=== PATIENT | male | born 1925 | race Caucasian/White ===

== ENCOUNTER 2016-10-08 19:43 | Inpatient (IN) | payer MEDICARE, OTHER ==
[~2016-10-08] VITALS: Ht 177.8 cm; Wt 98.5 kg
[2016-10-08] MEDS ORDERED: ALTEPLASE 1 MG/ML ONE (19:55)
[2016-10-08 19:56] LABS: HEMOGLOBIN 13.4 g/dL (13.7-18.0)
[2016-10-08] MEDS ORDERED: ALTEPLASE 9 MG in SYRINGE 1 EA IV ONE (20:30)
[2016-10-08] MEDS ORDERED: ALTEPLASE 81 MG in BAG 1 EACH IV ONE (20:30)
[2016-10-08] MEDS ORDERED: SODIUM CHLORIDE FLUSH 10ML SYR IVF PRN (21:00)
[2016-10-08] MEDS ORDERED: POLYETHYLENE GLYCOL 17 GM PACKET PO PRN (21:30)
[2016-10-08] MEDS ORDERED: BISACODYL 10 MG SUPP PR PRN (21:30)
[2016-10-08] MEDS: ATORVASTATIN 80 MG TABLET PO SCH (21:30)
[2016-10-08] MEDS ORDERED: LABETALOL 5MG/ML, 20ML IV PRN ×2 (21:30)
[2016-10-08] MEDS ORDERED: DOCUSATE 100 MG CAPSULE PO PRN (21:30)
[2016-10-08] MEDS ORDERED: ACETAMINOPHEN 325 MG TABLET PO PRN (21:30)
[2016-10-08] MEDS ORDERED: ONDANSETRON 2MG/ML, 2ML IVP PRN (21:30)
[2016-10-08] MEDS ORDERED: TRAZODONE 50MG TABLET PO PRN (21:30)
[2016-10-08 22:20] VITALS: BP 123/106
[2016-10-08 23:08] VITALS: BP 132/58
[2016-10-08] MEDS ORDERED: GADOBUTROL 10 MMOL/10 ML PFS ONE (23:23)
[2016-10-08 23:38] VITALS: BP 141/60
[2016-10-09] VITALS (26 sets, daily range): BP systolic 97–164; BP diastolic 36–117
[2016-10-09] MEDS: MORPHINE SULFATE 4 MG/ML, 1ML IVPush PRN ×2 (03:44→22:03)
[2016-10-09 04:39] LABS: HEMOGLOBIN 12.9 g/dL (13.7-18.0)
[2016-10-09 04:44] LABS: BLOOD UREA NITROGEN 15 mg/dL (7-18)
[2016-10-09 04:53] LABS: ASPARTATE AMINO TRANSFERASE 32 U/L (15-37)
[2016-10-09] MEDS: FAMOTIDINE 20 MG/2 ML IV SCH ×2 (10:01→20:04)
[2016-10-09] MEDS: SODIUM CHLORIDE 0.9% 1,000 ML IV SCH ×4 (10:05→19:20)
[2016-10-09] MEDS ORDERED: LABETALOL 5MG/ML, 20ML IV PRN (19:16)
[2016-10-09] MEDS ORDERED: METOPROLOL 1 MG/ML, 5ML IVPush PRN (19:30)
[2016-10-09] MEDS: ATORVASTATIN 80 MG TABLET PO SCH (21:00)
[2016-10-10] MEDS ORDERED: ASPIRIN 600 MG SUPP PR SCH (01:16)
[2016-10-10] MEDS: MORPHINE SULFATE 4 MG/ML, 1ML IVPush PRN (02:50)
[2016-10-10] MEDS ORDERED: ASPIRIN 300 MG SUPP PR ONE (07:00)
[2016-10-10] MEDS ORDERED: PROPOFOL 10 MG/ML, 20ML ONE (08:00)
[2016-10-10] MEDS ORDERED: MIDAZOLAM 1 MG/ML, 5ML ONE (08:00)
[2016-10-10] MEDS ORDERED: SUCCINYLCHOLINE 20 MG/ML, 10ML ONE (08:00)
[2016-10-10] MEDS: FAMOTIDINE 20 MG/2 ML IV SCH ×2 (08:51→21:33)
[2016-10-10] MEDS ORDERED: ASPIRIN 81 MG TABLET CHEW PO ONE (10:00)
[2016-10-10] MEDS ORDERED: ZIPRASIDONE 20 MG INJ IM PRN (10:30)
[2016-10-10] MEDS: SODIUM CHLORIDE 0.9% 1,000 ML IV SCH (10:30)
[2016-10-10] MEDS ORDERED: LORazepam 2 MG/ML, 1ML IVPush PRN (10:30)
[2016-10-10] MEDS: VALPROATE SODIUM 250 MG in DEXTROSE 5% 100 ML IV SCH ×2 (12:38→21:33)
[2016-10-10] MEDS ORDERED: AMPICILLIN/SULBACTAM 3 GM IM SCH (14:00)
[2016-10-10] MEDS ORDERED: FUROSEMIDE 20 MG/2 ML IV ONE (14:00)
[2016-10-10] MEDS ORDERED: BISACODYL 10 MG SUPP PR PRN (15:30)
[2016-10-10] MEDS ORDERED: FENTANYL PF 100 MCG/2ML IVPush PRN (15:30)
[2016-10-10] MEDS ORDERED: LACTULOSE 20 GM/30 ML UDC NG PRN (15:30)
[2016-10-10] MEDS ORDERED: LIDOCAINE-MPF 1%, 2ML ENDO PRN (15:30)
[2016-10-10] MEDS: ALBUTEROL/IPRATROPIUM 2.5MG/0.5MG, 3 ML INLINE SCH ×3 (15:30→23:30)
[2016-10-10] MEDS ORDERED: PHARMACY MAY ADJ FOR RENAL FX MC SCH (15:30)
[2016-10-10] MEDS ORDERED: SENNOSIDES 8.8 MG/5 ML ORAL SOL NG PRN (15:30)
[2016-10-10 15:41] LABS: ABG COLLECTION SITE RIGHT BRACHIAL
[2016-10-10] MEDS: AMPICILLIN/SULBACTAM 3 GM in SODIUM CHLORIDE 0.9% 100 ML IV SCH ×2 (16:04→20:40)
[2016-10-10 20:15] LABS: PATH.CAST-FLAG NOT PRESENT; SPERM-FLAG NOT PRESENT; SRC-FLAG NOT PRESENT; XTAL-FLAG NOT PRESENT; YLC-FLAG NOT PRESENT
[2016-10-10 20:40] LABS: HEMOGLOBIN 13.2 g/dL (13.7-18.0)
[2016-10-10] MEDS: PROPOFOL 100 ML IV PRN (20:51)
[2016-10-10] MEDS: SENNA/DOCUSATE TABLET NG PRN (21:33)
[2016-10-10] MEDS: ATORVASTATIN 80 MG TABLET PO SCH (21:33)
[2016-10-11] MEDS: SODIUM CHLORIDE 0.9% 500 ML IV SCH ×2 (01:50→04:30)
[2016-10-11] MEDS: VALPROATE SODIUM 250 MG in DEXTROSE 5% 100 ML IV SCH ×3 (02:15→21:35)
[2016-10-11] MEDS: AMPICILLIN/SULBACTAM 3 GM in SODIUM CHLORIDE 0.9% 100 ML IV SCH ×4 (02:15→21:35)
[2016-10-11] MEDS: MORPHINE SULFATE 4 MG/ML, 1ML IVPush PRN ×3 (02:16→19:47)
[2016-10-11] MEDS: ALBUTEROL/IPRATROPIUM 2.5MG/0.5MG, 3 ML INLINE SCH ×5 (03:30→22:14)
[2016-10-11 04:30] LABS: HEMOGLOBIN 12.6 g/dL (13.7-18.0)
[2016-10-11 04:31] LABS: ABG COLLECTION SITE LEFT RADIAL; COLLATERAL CIRCULATION TESTING NORMAL
[2016-10-11 04:43] LABS: ASPARTATE AMINO TRANSFERASE 64 U/L (15-37); BLOOD UREA NITROGEN 13 mg/dL (7-18)
[2016-10-11] MEDS ORDERED: SODIUM PHOSPHATE 20 MMOL in SODIUM CHLORIDE 0.9% 500 ML IV ONE (07:30)
[2016-10-11] MEDS ORDERED: POTASSIUM CHLORIDE 10% 40 MEQ/30 ML UDC PO ONE (07:30)
[2016-10-11] MEDS: PROPOFOL 100 ML IV PRN ×2 (07:58→22:52)
[2016-10-11] MEDS ORDERED: NOREPINEPHRINE 4 MG in SODIUM CHLORIDE 0.9% 246 ML IV PRN (08:00)
[2016-10-11] MEDS: SODIUM CHLORIDE 0.9% 1,000 ML IV SCH (08:07)
[2016-10-11] MEDS: INSULIN ASPART 100 UNITS/ML, 3ML PEN LOW DOSE SS SQ-INSULIN SCH ×3 (09:00→21:00)
[2016-10-11] MEDS: FAMOTIDINE 20 MG/2 ML IV SCH ×2 (10:29→21:36)
[2016-10-11] MEDS: ATORVASTATIN 80 MG TABLET PO SCH (21:36)
[2016-10-12] MEDS: SODIUM CHLORIDE 0.9% 1,000 ML IV SCH (00:58)
[2016-10-12] MEDS: ALBUTEROL/IPRATROPIUM 2.5MG/0.5MG, 3 ML INLINE SCH ×6 (02:03→21:55)
[2016-10-12] MEDS: AMPICILLIN/SULBACTAM 3 GM in SODIUM CHLORIDE 0.9% 100 ML IV SCH ×4 (02:13→19:39)
[2016-10-12] MEDS: INSULIN ASPART 100 UNITS/ML, 3ML PEN LOW DOSE SS SQ-INSULIN SCH ×4 (03:00→21:00)
[2016-10-12] MEDS: MORPHINE SULFATE 4 MG/ML, 1ML IVPush PRN ×2 (03:56→15:19)
[2016-10-12] MEDS: VALPROATE SODIUM 250 MG in DEXTROSE 5% 100 ML IV SCH ×3 (04:30→21:22)
[2016-10-12 04:38] LABS: HEMOGLOBIN 12.7 g/dL (13.7-18.0)
[2016-10-12 04:44] LABS: BLOOD UREA NITROGEN 17 mg/dL (7-18)
[2016-10-12 05:06] LABS: ABG COLLECTION SITE RIGHT RADIAL; COLLATERAL CIRCULATION TESTING NORMAL
[2016-10-12] MEDS ORDERED: POTASSIUM CHLORIDE 10% 40 MEQ/30 ML UDC PO ONE (07:00)
[2016-10-12] MEDS: FAMOTIDINE 20 MG/2 ML IV SCH ×2 (09:14→21:22)
[2016-10-12] MEDS: SENNA/DOCUSATE TABLET NG PRN (09:14)
[2016-10-12] MEDS: METOPROLOL TARTRATE 25 MG TABLET NG SCH ×2 (09:15→16:29)
[2016-10-12] MEDS: ATORVASTATIN 80 MG TABLET PO SCH (21:22)
[2016-10-12] MEDS ORDERED: PHENYLEPHRINE 10 MG in SODIUM CHLORIDE 0.9% 249 ML IV PRN (21:30)
[2016-10-13] MEDS: SODIUM CHLORIDE 0.9% 1,000 ML IV SCH (00:36)
[2016-10-13] MEDS: METOPROLOL TARTRATE 25 MG TABLET NG SCH ×3 (00:36→17:21)
[2016-10-13] MEDS: ALBUTEROL/IPRATROPIUM 2.5MG/0.5MG, 3 ML INLINE SCH ×6 (01:32→22:25)
[2016-10-13] MEDS: AMPICILLIN/SULBACTAM 3 GM in SODIUM CHLORIDE 0.9% 100 ML IV SCH ×4 (02:05→19:51)
[2016-10-13] MEDS: INSULIN ASPART 100 UNITS/ML, 3ML PEN LOW DOSE SS SQ-INSULIN SCH ×4 (03:00→21:00)
[2016-10-13 04:30] LABS: ABG COLLECTION SITE NOT DOCUMENTED
[2016-10-13] MEDS: VALPROATE SODIUM 250 MG in DEXTROSE 5% 100 ML IV SCH ×3 (04:51→20:40)
[2016-10-13 05:05] LABS: HEMOGLOBIN 12.7 g/dL (13.7-18.0)
[2016-10-13 05:12] LABS: BLOOD UREA NITROGEN 20 mg/dL (7-18)
[2016-10-13] MEDS: FAMOTIDINE 20 MG/2 ML IV SCH ×2 (08:08→20:51)
[2016-10-13] MEDS: SENNA/DOCUSATE TABLET NG PRN (08:51)
[2016-10-13] MEDS ORDERED: ALBUMIN HUMAN 5% 250 ML IV ONE (09:00)
[2016-10-13] MEDS ORDERED: FUROSEMIDE 20 MG/2 ML IV ONE (10:00)
[2016-10-13] MEDS ORDERED: ALBUMIN HUMAN 25% 50 ML IV ONE (11:00)
[2016-10-13] MEDS: MORPHINE SULFATE 4 MG/ML, 1ML IVPush PRN (11:49)
[2016-10-13] MEDS: ATORVASTATIN 80 MG TABLET PO SCH (20:50)
[2016-10-14] MEDS: SODIUM CHLORIDE 0.9% 1,000 ML IV SCH (00:43)
[2016-10-14] MEDS: METOPROLOL TARTRATE 25 MG TABLET NG SCH ×2 (01:26→09:03)
[2016-10-14] MEDS: AMPICILLIN/SULBACTAM 3 GM in SODIUM CHLORIDE 0.9% 100 ML IV SCH ×2 (02:08→09:01)
[2016-10-14] MEDS: ALBUTEROL/IPRATROPIUM 2.5MG/0.5MG, 3 ML INLINE SCH ×3 (02:17→10:05)
[2016-10-14] MEDS: MORPHINE SULFATE 4 MG/ML, 1ML IVPush PRN (02:20)
[2016-10-14] MEDS: INSULIN ASPART 100 UNITS/ML, 3ML PEN LOW DOSE SS SQ-INSULIN SCH (03:00)
[2016-10-14 04:42] LABS: ABG COLLECTION SITE LEFT RADIAL; COLLATERAL CIRCULATION TESTING NORMAL
[2016-10-14] MEDS: VALPROATE SODIUM 250 MG in DEXTROSE 5% 100 ML IV SCH (04:57)
[2016-10-14 04:58] LABS: HEMOGLOBIN 12.1 g/dL (13.7-18.0)
[2016-10-14 05:18] LABS: BLOOD UREA NITROGEN 22 mg/dL (7-18)
[2016-10-14] MEDS: FAMOTIDINE 20 MG/2 ML IV SCH (09:01)
[2016-10-14] MEDS ORDERED: morphine SULFATE 10 MG/ML, 1ML IV ONE (12:00)
[2016-10-14] MEDS ORDERED: LORazepam 2 MG/ML, 1ML IV ONE (12:00)
[2016-10-14] MEDS: ATROPINE OPHTH SOLN 1%, 2ML PO PRN (13:11)
[2016-10-14] MEDS: LORazepam 2 MG/ML, 1ML IV PRN ×3 (16:08→21:54)
[2016-10-15] MEDS: ATROPINE OPHTH SOLN 1%, 2ML PO PRN (04:16)
== END 2016-10-15 10:54 | disposition expired | DRG 871 ==
LOC: ED 19:53 → EDIP 20:49 → CCU 22:08 → 3NW 10-14 17:38
PROVIDERS: ADMIT Internal Medicine; ATTEND Internal Medicine
PROC: 3E03317 Introduction of Other Thrombolytic into Peripheral Vein, Percutaneous Approach (ICD-10-PCS; 2016-10-08)
PROC: 0T9B70Z Drainage of Bladder with Drainage Device, Via Natural or Artificial Opening (ICD-10-PCS; 2016-10-08)
PROC: 0BH17EZ Insertion of Endotracheal Airway into Trachea, Via Natural or Artificial Opening (ICD-10-PCS; principal; 2016-10-10)
PROC: 5A1945Z Respiratory Ventilation, 24-96 Consecutive Hours (ICD-10-PCS; 2016-10-10)
PROC: 0B9B8ZX Drainage of Left Lower Lobe Bronchus, Via Natural or Artificial Opening Endoscopic, Diagnostic (ICD-10-PCS; 2016-10-10)
PROC: 02HV33Z Insertion of Infusion Device into Superior Vena Cava, Percutaneous Approach (ICD-10-PCS; 2016-10-11)
PROC: B548ZZA Ultrasonography of Superior Vena Cava, Guidance (ICD-10-PCS; 2016-10-11)
DX: A41.9 Sepsis, unspecified organism (principal); I63.512 Cerebral infarction due to unspecified occlusion or stenosis of left middle cerebral artery; G93.40 Encephalopathy, unspecified; J69.0 Pneumonitis due to inhalation of food and vomit; J96.00 Acute respiratory failure, unspecified whether with hypoxia or hypercapnia; G81.91 Hemiplegia, unspecified affecting right dominant side; R47.01 Aphasia; I71.4 Abdominal aortic aneurysm, without rupture; Z51.5 Encounter for palliative care; E78.5 Hyperlipidemia, unspecified; I27.2 Other secondary pulmonary hypertension; I48.91 Unspecified atrial fibrillation; I11.0 Hypertensive heart disease with heart failure; I50.9 Heart failure, unspecified; J32.0 Chronic maxillary sinusitis; N40.0 Benign prostatic hyperplasia without lower urinary tract symptoms; R13.10 Dysphagia, unspecified; R29.810 Facial weakness; Z66 Do not resuscitate; R29.715 NIHSS score 15; R40.2362 Coma scale, best motor response, obeys commands, at arrival to emergency department; R40.2142 Coma scale, eyes open, spontaneous, at arrival to emergency department; R40.2242 Coma scale, best verbal response, confused conversation, at arrival to emergency department; W18.39XA Other fall on same level, initial encounter; Z90.79 Acquired absence of other genital organ(s); Z87.442 Personal history of urinary calculi; Y93.89 Activity, other specified; Y92.099 Unspecified place in other non-institutional residence as the place of occurrence of the external cause
CPT/HCPCS: 31622; 36415; 36569; 36600; 70450; 70553; 71010; 76937; 77001; 80047; 80048; 80053; 80061; 81001; 82533; 82803; 82962; 83605; 83735; 84100; 84439; 84443; 84478; 85025; 85610; 85730; 87040; 87070; 87081; 87205; 93005; 93306; 93880; 94002; 94003; 94640; 96365; A9585; J0295; J2250; J2704; J2997; J3486; J7060; J7620; P9047; 92523-GN; C1751; J0330; J1940; J2060; J2270; J7030; J7040; J7050; S0028